=== PATIENT | male | born 1985 | race Caucasian/White ===

== ENCOUNTER 2016-08-12 17:06 | Emergency (ER) | payer SELFPAY ==
[2016-08-12 17:17] VITALS: BP 177/75
--- NOTE | 2016-08-12 18:13 | ER Document Report ---
ED Oral Problem - General Chief Complaint: Mouth Problem Stated Complaint: MOUTH PAIN Time Seen by Provider: 08/12/16 17:55 Mode of Arrival: Ambulatory Information source: Patient Notes: Patient is a 31-year-old male who presents to the ER today for 3 days of sore under his tongue that is painful and white on top of his tongue that he noticed yesterday that will not scrape off. He denies any fever chills but states that he has not felt very well. He denies any recent antibiotics or use of nasal steroid sprays. He is a diabetic. Past Medical History - General Information source: Patient - Social History Smoking Status: Unknown if Ever Smoked Family History: Reviewed & Not Pertinent Renal/ Medical History: Denies: Hx Peritoneal Dialysis Review of Systems - Review of Systems Constitutional: No symptoms reported EENT: See HPI Cardiovascular: No symptoms reported Respiratory: No symptoms reported Gastrointestinal: No symptoms reported Genitourinary: No symptoms reported Male Genitourinary: No symptoms reported Musculoskeletal: No symptoms reported Skin: No symptoms reported Hematologic/Lymphatic: No symptoms reported Neurological/Psychological: No symptoms reported Physical Exam - Vital signs Vitals: Temp Pulse Resp BP Pulse Ox 98.1 F 87 20 177/75 H 96 08/12/16 17:15 08/12/16 17:15 08/12/16 17:15 08/12/16 17:15 08/12/16 17:15 - Notes Notes: PHYSICAL EXAMINATION: GENERAL:morbidly obese, in no acute distress. HEAD: Atraumatic, normocephalic. EYES: Pupils equal round and reactive to light, extraocular movements intact, sclera anicteric, conjunctiva are normal. ENT: ear canals without erythema or foreign body, TMs pearly rivera with good bony landmarks, nares patent, white patches on tongue, unable to scrape off, small ulcer to left sublingual space, not bleeding NECK: Normal range of motion, supple without lymphadenopathy LUNGS: CTAB and equal. No wheezes rales or rhonchi. HEART: Regular rate and rhythm without murmurs EXTREMITIES: Normal range of motion, no pitting edema. No cyanosis. NEUROLOGICAL: Cranial nerves grossly intact. Normal sensory/motor exams. PSYCH: Normal mood, normal affect. SKIN: Warm, Dry, normal turgor, no rashes or lesions noted Course - Re-evaluation Re-evalutation: 08/12/16 19:00 08/12/16 19:02 pt given rx for nystatin for thrush. likely due to his diabetes. - Vital Signs Vital signs: Temp Pulse Resp BP Pulse Ox 98.1 F 87 20 177/75 H 96 08/12/16 17:15 08/12/16 17:15 08/12/16 17:15 08/12/16 17:15 08/12/16 17:15 Discharge - Discharge Clinical Impression: Thrush, oral Condition: Stable Disposition: HOME, SELF-CARE Instructions: Oral Thrush ([facility]) Additional Instructions: Return immediately for any new or worsening symptoms. Follow up with primary care provider, call tomorrow to make followup appointment. Prescriptions: Nystatin [Mycostatin [id number] Unit/1 ml Susp 60 ml Btl] 5 ml PO QID #60 ml
[2016-08-12] MEDS ORDERED: NYSTATIN/DEXAMETH/DIPHEN SUSP 120 ML PO ONE (18:18)
== END 2016-08-12 18:49 | disposition home or self-care (01) ==
LOC: ER 17:06
DX: B37.0 Candidal stomatitis (principal); E11.9 Type 2 diabetes mellitus without complications; E66.01 Morbid (severe) obesity due to excess calories; Z68.43 Body mass index [BMI] 50.0-59.9, adult
CPT/HCPCS: 99282; J3490

== ENCOUNTER 2016-09-17 20:02 | Emergency (ER) | payer SELFPAY ==
--- NOTE | 2016-09-17 21:14 | RADIOLOGY REPORT (SQ) ---
EXAM DESCRIPTION: KNEE RIGHT 4 VIEWS COMPLETED DATE/TIME: 09/17/2016 8:50 pm REASON FOR STUDY: Pain, limited movement COMPARISON: None. NUMBER OF VIEWS: Four views. TECHNIQUE: AP, lateral, and both oblique radiographic images acquired of the right knee. LIMITATIONS: None. FINDINGS: MINERALIZATION: Normal. BONES: No acute fracture or dislocation. No worrisome bone lesions. Minimal 3 compartment osteophytes . JOINT: No effusion. No chondrocalcinosis. OTHER: No other significant finding. IMPRESSION: Minimal 3 compartment osteophytes. TECHNICAL DOCUMENTATION: JOB ID: [id number] [employer]- All Rights Reserved
--- NOTE | 2016-09-17 22:03 | ER Document Report ---
ED General - General Chief Complaint: Knee Pain Stated Complaint: KNEE PAIN Time Seen by Provider: 09/17/16 21:55 Mode of Arrival: Ambulatory Information source: Patient Notes: 31 yr old male presents with complaitns of right knee pain of a few month duration. pt denies any trauma, is able to ambulate, notes it hurts when he turns his leg. denies any calf pain or swell, denies any dvt risk factors TRAVEL OUTSIDE OF THE [place] IN LAST 30 DAYS: No - HPI Onset: Other Onset/Duration: Persistent Quality of pain: Achy Severity: Mild Pain Level: 1 Associated symptoms: Body/muscle aches Exacerbated by: Movement Relieved by: Denies Similar symptoms previously: No Recently seen / treated by doctor: No - Related Data Allergies/Adverse Reactions: No Known Allergies Allergy (Unverified 09/17/16 20:22) Past Medical History - Social History Smoking Status: Never Smoker Cigarette use (# per day): No Chew tobacco use (# tins/day): No Smoking Education Provided: No Family History: Reviewed & Not Pertinent Renal/ Medical History: Denies: Hx Peritoneal Dialysis Review of Systems - Review of Systems Notes: REVIEW OF SYSTEMS: CONSTITUTIONAL : Denies fever, chills, or sweats. Denies recent illness. EENT: Denies eye, ear, throat, or mouth pain or symptoms. Denies nasal or sinus congestion or discharge. Denies throat, tongue, or mouth swelling or difficulty swallowing. CARDIOVASCULAR: Denies chest pain. Denies palpitations or racing or irregular heart beat. Denies ankle edema. RESPIRATORY: Denies cough, cold, or chest congestion. Denies shortness of breath, difficulty breathing, or wheezing. GASTROINTESTINAL: Denies abdominal pain or distention. Denies nausea, vomiting , or diarrhea. Denies blood in vomitus, stools, or per rectum. Denies black, tarry stools. Denies constipation. GENITOURINARY: Denies difficulty urinating, painful urination, burning, frequency, blood in urine, or discharge. MUSCULOSKELETAL: Admits to right knee pain SKIN: Denies rash, lesions or sores. HEMATOLOGIC : Denies easy bruising or bleeding. LYMPHATIC: Denies swollen, enlarged glands. NEUROLOGICAL: Denies confusion or altered mental status. Denies passing out or loss of consciousness. Denies dizziness or lightheadedness. Denies headache. Denies weakness or paralysis or loss of use of either side. Denies problems with gait or speech. Denies sensory loss, numbness, or tingling. Denies seizures. PSYCHIATRIC: Denies anxiety or stress. Denies depression, suicidal ideation, or homicidal ideation. ALL OTHER SYSTEMS REVIEWED AND NEGATIVE. Dictation was performed using [employer] voice recognition software PHYSICAL EXAMINATION: GENERAL: Well-appearing, well-nourished and in no acute distress. HEAD: Atraumatic, normocephalic. EYES: Pupils equal round and reactive to light, extraocular movements intact, sclera anicteric, conjunctiva are normal. ENT: Nares patent, oropharynx clear without exudates. Moist mucous membranes. NECK: Normal range of motion, supple without lymphadenopathy LUNGS: Breath sounds clear to auscultation bilaterally and equal. No wheezes rales or rhonchi. HEART: Regular rate and rhythm without murmurs ABDOMEN: Soft, nontender, nondistended abdomen. No guarding, no rebound. No masses appreciated. Musculoskeletal: Normal range of motion, no pitting or edema. No cyanosis. Patient notes tenderness with range of motion no laxity noted patient is able to ambulate NEUROLOGICAL: Cranial nerves grossly intact. Normal speech, normal gait. Normal sensory, motor exams PSYCH: Normal mood, normal affect. SKIN: Warm, Dry, normal turgor, no rashes or lesions noted. Physical Exam - Vital signs Vitals: Temp Pulse Resp BP Pulse Ox 98.8 F 93 20 185/82 H 99 09/17/16 20:21 09/17/16 20:21 09/17/16 20:21 09/17/16 20:21 09/17/16 20:21 Course - Re-evaluation Re-evalutation: 09/17/16 22:08 Patient otherwise appears well is in no distress, we will try anti- inflammatories [id number] plus steroids as the patient has had no issues with this in the past. He denies a history of diabetes. Patient will be given orthopedic follow-up and Tanner wrap is otherwise well-appearing After performing a Medical Screening Examination, I estimate there is LOW risk for INTRACRANIAL HEMORRHAGE, UNSTABLE SPINE FRACTURE, CENTRAL CORD SYNDROME, CAUDA EQUINA, THORACIC AORTIC DISSECTION, PNEUMOTHORAX, PERFORATED BOWEL, RUPTURED ABDOMINAL AORTIC ANEURYSM, ACUTE TENDON RUPTURE, COMPARTMENT SYNDROME, or OPEN FRACTURE, thus I consider the discharge disposition reasonable. Also, there is no evidence or peritonitis, sepsis, or toxicity. I have reevaluated this patient multiple times and no significant life threatening changes are noted. The patient and I have discussed the diagnosis and risks, and we agree with discharging home to follow-up with their primary doctor with the understanding that symptoms and presentations can change. We also discussed returning to the Emergency Department immediately if new or worsening symptoms occur. We have discussed the symptoms which are most concerning (e.g., bloody stool, fever, changing or worsening pain, vomiting) that necessitate immediate return. - Vital Signs Vital signs: Temp Pulse Resp BP Pulse Ox 98.8 F 93 20 185/82 H 99 09/17/16 20:21 09/17/16 20:21 09/17/16 20:21 09/17/16 20:21 09/17/16 20:21 Procedures - Immobilization Right Knee Time completed: 22:00 Pre-Proc Neuro Vasc Exam: Normal Immobilizer type: Tanner wrap Performed by: PCT Post-Proc Neuro Vasc Exam: Normal Alignment checked and good: Yes Discharge - Discharge Clinical Impression: Right knee pain Qualifiers: Chronicity: chronic Qualified Code(s): M25.561 - Pain in right knee Condition: Stable Disposition: HOME, SELF-CARE Instructions: Suspected Internal Knee Injury ([facility]) Prescriptions: Hydrocodone/Acetaminophen [York 5-325 mg Tablet] 1 tab PO Q6 #10 tablet Prednisone [Deltasone 20 mg Tablet] 3 tab PO DAILY 5 Days Referrals: DOMINICK KING DO [ACTIVE STAFF] - Follow up tomorrow
[2016-09-17] MEDS ORDERED: HYDROCODONE/ACETAMINOPHEN 5-325 MG TABLET PO ONE (22:22)
[2016-09-17 22:58] VITALS: BP 160/103
== END 2016-09-17 22:54 | disposition home or self-care (01) ==
LOC: ER 20:02
DX: M25.561 Pain in right knee (principal); G89.29 Other chronic pain
CPT/HCPCS: 99283

== ENCOUNTER 2016-09-30 16:38 | Emergency (ER) | payer SELFPAY ==
[2016-09-30 16:48] VITALS: BP 182/96
[2016-09-30] MEDS ORDERED: KETOROLAC TROMETHAMINE 60 MG/2 ML SDV IM ONE (17:19)
--- NOTE | 2016-09-30 17:24 | ER Document Report ---
ED Extremity Problem, Lower - General Chief Complaint: R knee pain Stated Complaint: RIGHT KNEE PAIN Time Seen by Provider: 09/30/16 16:57 Mode of Arrival: Ambulatory Information source: Patient Notes: 1-year-old male presents to ED for right knee pain 2 months. He states it gets worse. He states he has not been to the doctor even though he was [facility]. He states he is waiting till he can get insurance to go to the doctor. He states he is emptying aranza potty. He states he was in the emergency room 2 weeks ago and they gave him a sheet wrap and hydrocodone but he has taken all of the hydrocodone and worn out the Tanner wrap. He states he needs a knee brace I explained to him that we do not have knee braces in the emergency room. TRAVEL OUTSIDE OF THE [place] IN LAST 30 DAYS: No - HPI Patient complains to provider of: Pain Location: Knee - Knee Occurred: Other - 2 months Quality of pain: Achy Severity: Moderate Pain Level: 4 Context: Other - No injuries states it is worse if he kneels on it Recent injury: No Associated symptoms: Painful ambulation Exacerbated by: Movement, Walking, Other - Kneeling down Relieved by: Ice, Rest - Related Data Allergies/Adverse Reactions: No Known Allergies Allergy (Unverified 09/17/16 20:22) Past Medical History - General Information source: Patient - Social History Smoking Status: Current Every Day Smoker Cigarette use (# per day): Yes - 3 cig Chew tobacco use (# tins/day): No Smoking Education Provided: Yes - less than 1 min Frequency of alcohol use: None Drug Abuse: None 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[employer] Lives with: Family Family History: Arthritis, CAD, COPD, CVA, DM, Hyperlipidemia, Hypertension, Malignancy, Thyroid Disfunction Patient has suicidal ideation: No Patient has homicidal ideation: No - Past Medical History Cardiac Medical History: Reports: Hx Hypertension Pulmonary Medical History: Reports: Hx Asthma EENT Medical History: Reports: None Neurological Medical History: Reports: None Endocrine Medical History: Reports: None Renal/ Medical History: Reports: Hx Kidney Stones Malignancy Medical History: Reports None GI Medical History: Reports: None Musculoskeltal Medical History: Reports Hx Arthritis, Reports Hx Musculoskeletal Deformity, Reports Hx Musculoskeletal Trauma Skin Medical History: Reports None Psychiatric Medical History: Reports: None Traumatic Medical History: Reports: None Infectious Medical History: Reports: None Past Surgical History: Reports: Hx Orthopedic Surgery - hand surgery - Immunizations Immunizations up to date: Yes Hx Diphtheria, Pertussis, Tetanus Vaccination: Yes - 2014 Review of Systems - Review of Systems Constitutional: No symptoms reported EENT: No symptoms reported Cardiovascular: No symptoms reported Respiratory: No symptoms reported Gastrointestinal: No symptoms reported Genitourinary: No symptoms reported Male Genitourinary: No symptoms reported Musculoskeletal: Joint pain - right knee pain Skin: No symptoms reported Hematologic/Lymphatic: No symptoms reported Neurological/Psychological: No symptoms reported -: Yes All other systems reviewed and negative Physical Exam - Vital signs Vitals: Temp Pulse Resp BP Pulse Ox 98.4 F 92 16 182/96 H 97 09/30/16 16:47 09/30/16 16:47 09/30/16 16:47 09/30/16 16:47 09/30/16 16:47 Interpretation: Normal - General General appearance: Appears well, Alert - HEENT Head: Normocephalic, Atraumatic Eyes: Normal Pupils: PERRL - Respiratory Respiratory status: No respiratory distress Chest status: Nontender Breath sounds: Normal Chest palpation: Normal - Cardiovascular Rhythm: Regular Heart sounds: Normal auscultation Murmur: No - Abdominal Inspection: Normal Distension: No distension Bowel sounds: Normal Tenderness: Nontender Organomegaly: No organomegaly - Back Back: Normal, Nontender - Extremities General upper extremity: Normal inspection, Nontender, Normal color, Normal ROM , Normal temperature General lower extremity: Normal inspection, Normal color, Normal ROM, Normal temperature, Normal weight bearing Knee: Tender - Tender at the bottom of the patella states that is worse when he kneels, Pain with ROM. No: Abrasion, Deformity, Dislocation, Drawer's test instability, Ecchymosis, Instability, Joint effusion, Laxity with valgus stress , Laxity with varus stress, Patellar tendon intact, Popliteal fossa tender, Tender joint line, Unable to bear weight - Neurological Neuro grossly intact: Yes Cognition: Normal Orientation: AAOx4 [place]vine Coma Scale Eye Opening: Spontaneous [place] Coma Scale Verbal: Oriented Maueren Coma Scale Motor: Obeys Commands G[place]vine Coma Scale Total: 15 Speech: Normal Motor strength normal: LUE, RUE, LLE, RLE Sensory: Normal - Psychological Associated symptoms: Normal affect, Normal mood - Skin Skin Temperature: Warm Skin Moisture: Dry Skin Color: Normal Course - Re-evaluation Re-evalutation: 09/30/16 17:38 Patient is very obese at around 400 pounds. He states his knee has been hurting for over 2 months. He states he does not remember any injury. Patient was seen in the emergency room 2 weeks ago and instructed to follow-up with orthopedics and with [facility] which he has not yet done. He also has elevated blood pressure and has been told multiple times he states but has not started on any kind of medication and he has not followed up with the primary doctor. Patient states he should be getting insurance soon and then he will be following up with . Patient will be given a Toradol injection instruction on use of ice and elevation. He was also given instructions on losing some weight to help with the knee pain. - Vital Signs Vital signs: Temp Pulse Resp BP Pulse Ox 98.4 F 92 16 182/96 H 97 09/30/16 16:47 09/30/16 16:47 09/30/16 16:47 09/30/16 16:47 09/30/16 16:47 Discharge - Discharge Clinical Impression: Chronic pain of right knee Condition: Stable Disposition: HOME, SELF-CARE Additional Instructions: Leg Pain, Nonspecific We did not find an obvious cause for your leg pain. There's no sign of blood clot, infection, or other serious disease. Possible causes of vague leg pain include muscle or joint inflammation, disc disease in the lower back, pressure on the nerves in the back, or reduced blood flow through the arteries of the leg. Rest the leg. Pain can be eased with an antiinflammatory pain medicine such as ibuprofen. If the pain involves a small area, a heating pad might help. Call the doctor or return if the leg becomes swollen, weak, discolored, or increasingly painful, or if you develop any other significant change in your health. ICE & ELEVATION: Apply ice packs frequently against the painful area. Many different schedules are recommended, such as "20 minutes on, 20 minutes off" or "one hour ice, two hours rest." If you need to work, you may need to go longer between ice treatments. You should plan to have the area ice packed AT LEAST one- fourth of the time. The ice should be applied over the wrap, tape, or splint, or over a layer of cloth -- not directly against the skin. Some ice bags have a built-in cloth and can be put directly on the skin. Your injured part should be elevated as much as possible over the next 48 hours. Try to keep the injury above the level of the heart. Avoid use of the injured area. Elevation and rest will decrease the swelling. USE OF [id number] IBUPROFEN: Ibuprofen (Advil, Nuprin, Medipren, Motrin IB) is a medication for fever and pain control. In addition, it has anti- inflammatory effects which may be beneficial, especially in the treatment of injuries. It's best to take ibuprofen with food. Persons with ulcer disease or allergy to aspirin should notify their physician of this before taking ibuprofen. Ibuprofen can be given every four to six hours, for a total of four doses daily. Age Pain or fever dose Antiinflammatory dose 6-8 yr 200 mg (1 tab) 200 mg (1 tab) 9-11 yr 200 mg (1 tab) 200-400 mg (1-2 tab) 11-14 yr 200-400 mg (1-2 tab) 400 mg (2 tab) 15-adult 400 mg (2 tab) 600 mg (3 tab) Acetaminophen Acetaminophen may be taken for pain relief or fever control. It's much safer than aspirin, offering a wider range of "safe" dosages. It is safe during . Some brand names are Tylenol, Panadol, Datril, Anacin 3, Tempra, and Liquiprin. Acetaminophen can be repeated every four hours. The following are maximum recommended dosages: WEIGHT Dose Drops Elixir Chewable( 80mg) (LBS.) drprs=droppers tsp=teaspoon 6 40 mg .4 ml (1/2) 6-11 80 mg .8 ml (full) 1/2 tsp 1 tab 12-16 120 mg 1 1/2 drprs 3/4 tsp 1 1/2 tabs 17-23 160 mg 2 drprs 1 tsp 2 tabs 24-30 240 mg 3 drprs 1 1/2 tsp 3 tabs 30-35 320 mg 2 tsp 4 tabs 36-41 360 mg 2 1/4 tsp 4 1 /2 tabs 42-47 400 mg 2 1/2 tsp 5 tabs 48-53 480 mg 3 tsp 6 tabs 54-59 520 mg 3 1/4 tsp 6 1 /2 tabs 60-64 560 mg 3 1/2 tsp 7 tabs 65-70 600 mg 3 3/4 tsp 7 1 /2 tabs 71-76 640 mg 4 tsp 8 tabs 77-82 720 mg 4 1/2 tsp 9 tabs 83-88 800 mg 5 tsp 10 tabs >89 pounds or adults 650 mg to 900 mg Acetaminophen can be repeated every four hours. Maximum daily dose not to exceed 4000 mg. These maximum recommended dosages are slightly higher than the dosages written on the product container, but these dosages are very safe and well below the toxic dosage for acetaminophen. The extra weight you are carrying is also contributing to your knee pain. You need to try to lose some of the excess weight and exercise to help with your knee pain. Try Aspercreme [id number] to the area of pain this is a lidocaine. Followed directions on the tube for application. This will also help your back pain FOLLOW-UP CARE: If you have been referred to a physician for follow-up care, call the physician s office for an appointment as you were instructed or within the next two days. If you experience worsening or a significant change in your symptoms, notify the physician immediately or return to the Emergency Department at any time for re-evaluation. Forms: Elevated Blood Pressure, Smoking Cessation Education, Return to Work Referrals: DOMINICK KING DO [ACTIVE STAFF] - Follow up as needed [facility] [Provider Group] - Follow up as needed [facility] [Provider Group] - Follow up as needed
== END 2016-09-30 18:05 | disposition home or self-care (01) ==
LOC: ER 16:38
DX: G89.29 Other chronic pain (principal); M25.561 Pain in right knee; E66.9 Obesity, unspecified; F17.210 Nicotine dependence, cigarettes, uncomplicated; I10 Essential (primary) hypertension; J45.909 Unspecified asthma, uncomplicated
CPT/HCPCS: 99283; 96372; J1885

== ENCOUNTER 2016-10-19 07:34 | Emergency (ER) | payer SELFPAY ==
--- NOTE | 2016-10-19 08:00 | ER Document Report ---
HPI - HPI Patient complains to provider of: cough, congestion Onset: Other - 3 days Quality of pain: Achy Pain Level: 2 Context: 31-year-old obese male complaining of congestion and cough for 3 days. His temperature was 101.5 this morning. He smokes. He is used inhaled bronchodilators in the past. No chest pain or shortness of breath. Associated Symptoms: None Exacerbated by: Denies Relieved by: Denies - ROS ROS below otherwise negative: Yes Systems Reviewed and Negative: Yes All other systems reviewed and negative - DERM Skin Color: Normal Past Medical History - General Information source: Patient - Social History Smoking Status: Current Every Day Smoker Frequency of alcohol use: None Drug Abuse: None Occupation: [employer] Lives with: Family Family History: Reviewed & Not Pertinent Patient has suicidal ideation: No Patient has homicidal ideation: No - Past Medical History Cardiac Medical History: Reports: Hx Hypertension Pulmonary Medical History: Reports: Hx Asthma Renal/ Medical History: Reports: Hx Kidney Stones. Denies: Hx Peritoneal Dialysis Musculoskeltal Medical History: Reports Hx Arthritis, Reports Hx Musculoskeletal Deformity, Reports Hx Musculoskeletal Trauma Past Surgical History: Reports: Hx Orthopedic Surgery - hand surgery - Immunizations Immunizations up to date: Yes Hx Diphtheria, Pertussis, Tetanus Vaccination: Yes - 2014 [facility] Provider Document - CONSTITUTIONAL Agree With Documented VS: Yes Exam Limitations: No Limitations General Appearance: No Apparent Distress - INFECTION CONTROL TRAVEL OUTSIDE OF THE [place] IN LAST 30 DAYS: No - HEENT HEENT: Normocephalic, Pharyngeal Erythema. negative: Conjuctival Injection, Tympanic Membrane Red - NECK Neck: Supple. negative: Lymphadenopathy-Left, Lymphadenopathy-Right - RESPIRATORY Respiratory: No Respiratory Distress, Wheezing - Course bilateral on expiration O2 Sat by Pulse Oximetry: 94 - CARDIOVASCULAR Cardiovascular: Regular Rate, Regular Rhythm - GI/ABDOMEN Gastrointestinal: Abdomen Soft, Abdomen Non-Tender - MUSCULOSKELETAL/EXTREMETIES Musculoskeletal/Extremeties: JB JOSHI - NEURO Level of Consciousness: Awake, Alert - DERM Integumentary: Warm, Dry Course - Re-evaluation Re-evalutation: 10/19/16 09:53 chest xray vascular congestion, no pneumonia per rad. mucous looser, coughing, still some coarse exp wheeze 10/19/16 09:56 - Vital Signs Vital signs: Temp Pulse Resp BP Pulse Ox 98.8 F 111 H 22 H 187/90 H 94 10/19/16 07:44 10/19/16 07:44 10/19/16 07:44 10/19/16 07:44 10/19/16 07:44 Discharge - Discharge Clinical Impression: Bronchitis, reported fever, wheezing Condition: Good Disposition: HOME, SELF-CARE Instructions: Azithromycin ([facility]), Bronchitis With Bronchospasm (Wheezing) ([facility]) , Inhaled Bronchodilators ([facility]), Steroid Medication Additional Instructions: use the inhaler to help cough the mucous out see your doctor next week for follow up to er if worse plenty of fluids Please complete the patient satisfaction survey if you get one, and return it.. If you do not receive a survey, then you can go to the [facility] website, [email or web address] and place your comments about your very good care. Thank you very much. It was a pleasure being your medical provider today. Prescriptions: Albuterol Sulfate [Proair HFA Inhalation Aerosol 8.5 gm MDI] 2 puff IH Q3HP PRN #1 [email or web address] PRN Reason: Azithromycin [Zithromax] 250 mg PO DAILY #6 tablet Prednisone [Deltasone 10 mg Tablet] 10 mg PO ASDIR PRN #21 tablet PRN Reason: Forms: Return to Work
[2016-10-19] MEDS ORDERED: ALBUTEROL SULFATE 0.083% NEB 2.5 MG/3 ML AMPUL NEB ONE (08:42)
[2016-10-19] MEDS ORDERED: IPRATROPIUM/ALBUTEROL 0.5-2.5 MG/3 ML AMPUL NEB ONE (08:42)
[2016-10-19] MEDS ORDERED: PREDNISONE 20 MG TABLET PO ONE (08:42)
--- NOTE | 2016-10-19 09:26 | RADIOLOGY REPORT (SQ) ---
EXAM DESCRIPTION: CHEST PA/LAT COMPLETED DATE/TIME: 10/19/2016 9:14 am REASON FOR STUDY: cough COMPARISON: None. EXAM PARAMETERS: NUMBER OF VIEWS: two views TECHNIQUE: Digital Frontal and Lateral radiographic views of the chest acquired. RADIATION DOSE: NA LIMITATIONS: Poor inspiration. FINDINGS: LUNGS AND PLEURA: No opacities, masses or pneumothorax. No pleural effusion. MEDIASTINUM AND HILAR STRUCTURES: No masses or contour abnormalities. HEART AND VASCULAR STRUCTURES: Cardiac silhouette is of normal size. Mild vascular congestion. BONES: No acute findings. Mild chronic appearing wedging of lower thoracic vertebrae. Mild thoracic spondylosis. HARDWARE: None in the chest. OTHER: Partial eventration of the anterior right hemidiaphragm IMPRESSION: Mild vascular congestion. TECHNICAL DOCUMENTATION: JOB ID: [id number] [employer]- All Rights Reserved
[2016-10-19 10:05] VITALS: BP 180/85
== END 2016-10-19 10:06 | disposition home or self-care (01) ==
LOC: ER 07:34
DX: J45.909 Unspecified asthma, uncomplicated (principal); R05 Cough; F17.200 Nicotine dependence, unspecified, uncomplicated; I10 Essential (primary) hypertension; R50.9 Fever, unspecified
CPT/HCPCS: 94640 ×2; 99283; 71020; J7512; J7620

== ENCOUNTER 2017-05-28 08:42 | Emergency (ER) | payer OTHER ==
[2017-05-28 08:49] VITALS: BP 164/89
[2017-05-28] MEDS ORDERED: TETRACAINE HCL 0.5% OPH SOLN 2 ML OS ONE (09:19)
[2017-05-28] MEDS ORDERED: NYSTATIN/TRIAMCIN OINTMENT 15 GM TP ONE (09:19)
--- NOTE | 2017-05-28 09:20 | ER Document Report ---
ED General - General Chief Complaint: Skin Problem Stated Complaint: RASH CONCERN Time Seen by Provider: 05/28/17 09:03 Mode of Arrival: Ambulatory Information source: Patient Notes: 32-year-old male presents to the ED for complaint of large rash to his abdominal folds. He states that it is been there for a good while and it is very itchy. He states he has been putting some Goldbond powder to the area with not a lot of relief. He states it is been there for a good while but he does not know how long. He has also been complaining of left eye drainage for "a good while to "he states he does not know what he did to his eye but it is been draining consistently. 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: No - HPI Onset: Other - "A good while " Onset/Duration: Persistent Quality of pain: No pain Severity: None Pain Level: Denies Associated symptoms: Other - Rash to abdomen drainage from left eye Exacerbated by: Denies Relieved by: Denies Similar symptoms previously: Yes Recently seen / treated by doctor: No - Related Data Allergies/Adverse Reactions: No Known Allergies Allergy (Verified 05/28/17 08:46) Past Medical History - General Information source: Patient - Social History Smoking Status: Current Every Day Smoker Cigarette use (# per day): Yes - Half pack a day Chew tobacco use (# tins/day): No Smoking Education Provided: Yes - 4 minutes Frequency of alcohol use: Occasional Drug Abuse: None, Other Occupation: [employer] Lives with: Family Family History: Arthritis, CAD, CVA, DM, Hyperlipidemia, Hypertension, Malignancy. denies: COPD, Thyroid Disfunction Patient has suicidal ideation: No Patient has homicidal ideation: No - Past Medical History Cardiac Medical History: Reports: Hx Hypertension Pulmonary Medical History: Reports: Hx Asthma EENT Medical History: Reports: None Neurological Medical History: Reports: None Endocrine Medical History: Reports: None Renal/ Medical History: Reports: Hx Kidney Stones Malignancy Medical History: Reports None GI Medical History: Reports: None Musculoskeltal Medical History: Reports Hx Arthritis, Reports Hx Musculoskeletal Deformity - Back problems, Reports Hx Musculoskeletal Trauma - Muscle strains and sprains, shot water into his hand Skin Medical History: Reports None Psychiatric Medical History: Reports: None Traumatic Medical History: Reports: None Infectious Medical History: Reports: None Past Surgical History: Reports: Hx Orthopedic Surgery - hand surgery due to water shooting through his hand - Immunizations Immunizations up to date: Yes Hx Diphtheria, Pertussis, Tetanus Vaccination: Yes - 2014 Review of Systems - Review of Systems Constitutional: No symptoms reported EENT: No symptoms reported, Eye discharge, Blurred vision - Times Cardiovascular: No symptoms reported Respiratory: No symptoms reported Gastrointestinal: No symptoms reported Genitourinary: No symptoms reported Male Genitourinary: No symptoms reported Musculoskeletal: No symptoms reported Skin: Rash - Fungal rash to abdomen skin folds Hematologic/Lymphatic: No symptoms reported Neurological/Psychological: No symptoms reported -: Yes All other systems reviewed and negative Physical Exam - Vital signs Vitals: Temp Pulse Resp BP Pulse Ox 98.7 F 92 16 164/89 H 93 05/28/17 08:47 05/28/17 08:47 05/28/17 08:47 05/28/17 08:47 05/28/17 08:47 Interpretation: Normal - General General appearance: Appears well, Alert - HEENT Head: Normocephalic, Atraumatic Eyes: Normal Conjunctiva: Purulent discharge - Yellow drainage from left eye Cornea: Normal. No: Embedded foreign body, Flourescein stain uptake, Superficial foreign body Eyelashes: Matted - Yellow drainage in the eye matted with yellow drainage left eye Pupils: PERRL Visual acuity- Right eye: 20/70 Visual acuity- Left eye: 20/70 Visual acuity- Both eyes: 20/40 Corrective lenses worn: No - supposed to wear glasses Ears: Normal External canal: Normal Tympanic membrane: Normal Sinus: Normal Nasal: Normal Mouth/Lips: Normal Mucous membranes: Normal Pharynx: Normal Neck: Normal - Respiratory Respiratory status: No respiratory distress Chest status: Nontender Breath sounds: Normal Chest palpation: Normal - Cardiovascular Rhythm: Regular Heart sounds: Normal auscultation Murmur: No - Abdominal Inspection: Normal Distension: No distension Bowel sounds: Normal Tenderness: Nontender, Other - Large fungal type rash to the lower abdomen skin folds Organomegaly: No organomegaly - Back Back: Normal, Nontender - Extremities General upper extremity: Normal inspection, Nontender, Normal color, Normal ROM , Normal temperature General lower extremity: Normal inspection, Nontender, Normal color, Normal ROM , Normal temperature, Normal weight bearing. No: Frank's sign - Neurological Neuro grossly intact: Yes Cognition: Normal Orientation: AAOx4 Maureen Coma Scale Eye Opening: Spontaneous [place] Coma Scale Verbal: Oriented Maureen Coma Scale Motor: Obeys Commands Maureen Coma Scale Total: 15 Speech: Normal Motor strength normal: LUE, RUE, LLE, RLE Sensory: Normal - Psychological Associated symptoms: Normal affect, Normal mood - Skin Skin Temperature: Warm Skin Moisture: Dry Skin Color: Normal Skin irregularity: Rash Location of irregularity: Abdomen - Skin folds Character of irregularity: Erythematous, Urticarial Irregularity with: Thickening, Inflammation, Rough texture-sand paper Course - Re-evaluation Re-evalutation: 05/28/17 09:[address] Rodriguez for Yellow drainage to left eye for "awhile". Mycolog ordered for the fungal type rash to his abdomen. Eye exam did not show any corneal abrasions any foreign bodies but it does have a lot of drainage in the upper aspect of his eye. An appointment was scheduled for today at [address] James considering his eyes. He has been informed that the full anders is 180 if he pays today or it is 200 if he does not painful today. - Vital Signs Vital signs: Temp Pulse Resp BP Pulse Ox 98.7 F 92 16 164/89 H 93 05/28/17 08:47 05/28/17 08:47 05/28/17 08:47 05/28/17 08:47 05/28/17 08:47 Discharge - Discharge Clinical Impression: Eye drainage left eye, Skin rash Condition: Stable Disposition: HOME, SELF-CARE Additional Instructions: He was seen today for drainage from the left eye. You state you do not know how long this has been draining. You states you have had your I take shot for a while. I have scheduled you an appointment with Dr. Rodriguez at 230 today your to be at his office at 230 your in your appointments are at 245 and 315 but she needs to both there at 230. The phone number is [phone] calling any insurance information beforehand. Very important that she keep this appointment due to this drainage that is been coming from you I forgot while it can affect your vision and the health of your eye. Cost without insurance is $180 a painful today $200 if not painful today. You have a large rash to her lower abdomen. This appears to be a yeast rash. Please cleaned well with Dial soap rinse well with warm water pat dry then apply Mycolog cream as prescribed. Please keep the skin folds from touching each other with something cotton not nylon. Please keep clean and dry as much as possible. FOLLOW-UP CARE: If you have been referred to a physician for follow-up care, call the physician s office for an appointment as you were instructed or within the next two days. If you experience worsening or a significant change in your symptoms, notify the physician immediately or return to the Emergency Department at any time for re-evaluation. Prescriptions: Nystatin/Triamcin [Mycolog-II Ointment 15 gm] 15 applic TP BID #1 tube Forms: Elevated Blood Pressure, Smoking Cessation Education, Return to Work Referrals: SANJUANA RODRIGUEZ MD [ACTIVE STAFF] - Follow up as needed
== END 2017-05-28 10:30 | disposition home or self-care (01) ==
LOC: ER 08:42
DX: H57.9 Unspecified disorder of eye and adnexa (principal); R21 Rash and other nonspecific skin eruption; F17.210 Nicotine dependence, cigarettes, uncomplicated; I10 Essential (primary) hypertension; J45.909 Unspecified asthma, uncomplicated
CPT/HCPCS: 99406; 99283; J3490

== ENCOUNTER 2018-01-19 08:08 | Emergency (ER) | payer SELFPAY ==
--- NOTE | 2018-01-19 09:16 | ER Document Report ---
HPI - HPI Time Seen by Provider: 01/19/18 09:04 Pain Level: 2 Notes: Patient is a 32-year-old male with no significant past medical history who presents to the ED complaining of a rash to his bilateral lower extremities that has been moving proximally and to his trunk over the last 9 days. Patient states that he is working outside constantly and does not recall any tick bite. He has not been ill. Denies drug allergies. Patient states that the rash is pruritic and does not matter if its day or night. He has not noticed any purulent discharge or an abscess. He is eating and drinking without any difficulties. He is urinating normally and having normal bowel movements. He is not aware of any new exposure to chemicals, detergents, soaps, foods, or any medicines. Denies any headache, fever, URI, sore throat, chest pain, palpitations, syncope, cough, shortness of breath, wheeze, dyspnea, abdominal pain, nausea/vomiting/diarrhea, urinary retention, dysuria, hematuria, joint pain. - ROS Systems Reviewed and Negative: Yes All other systems reviewed and negative Past Medical History - Social History Smoking Status: Unknown if Ever Smoked Family History: Arthritis, CAD, CVA, DM, Hyperlipidemia, Hypertension, Malignancy. denies: COPD, Thyroid Disfunction - Past Medical History Cardiac Medical History: Reports: Hx Hypertension Pulmonary Medical History: Reports: Hx Asthma Renal/ Medical History: Reports: Hx Kidney Stones. Denies: Hx Peritoneal Dialysis Musculoskeletal Medical History: Reports Hx Arthritis, Reports Hx Musculoskeletal Deformity - Back problems, Reports Hx Musculoskeletal Trauma - Muscle strains and sprains, shot water into his hand Past Surgical History: Reports: Hx Orthopedic Surgery - hand surgery due to water shooting through his hand - Immunizations Immunizations up to date: Yes Hx Diphtheria, Pertussis, Tetanus Vaccination: Yes - 2014 [facility] Provider Document - CONSTITUTIONAL Agree With Documented VS: Yes Notes: PHYSICAL EXAMINATION: GENERAL: Well-appearing, well-nourished and in no acute distress. HEAD: Atraumatic, normocephalic. EYES: Pupils equal round and reactive to light, extraocular movements intact, sclera anicteric, conjunctiva are normal. ENT: Nares patent and without discharge. oropharynx clear without exudates. No tonsilar hypertrophy or erythema. Moist mucous membranes. NECK: Normal range of motion, supple without lymphadenopathy LUNGS: Breath sounds clear to auscultation bilaterally and equal. No wheezes rales or rhonchi. HEART: Regular rate and rhythm without murmurs, rubs, gallops. ABDOMEN: Soft, nontender, nondistended abdomen. No guarding, no rebound. No masses appreciated. Normal bowel sounds present. No CVA tenderness bilaterally. Musculoskeletal: FROM to passive/active. Strength 5+/5. Extremities: No cyanosis, clubbing, or edema b/l. Peripheral pulses 2+. Capillary refill less than 3 seconds. NEUROLOGICAL: Cranial nerves grossly intact. Normal speech, normal gait. Normal sensory, motor exams PSYCH: Normal mood, normal affect. SKIN: maculopapular rash to his LE's b/l and to his trunk, sparing the web spacing and groin/waist. There is an area of more macular erythema with minimal warmth and minimal tenderness w/o fluctuance, purulence, or streaks, possible early cellulitis w/o point of maximal tenderness. - INFECTION CONTROL TRAVEL OUTSIDE OF THE [place] IN LAST 30 DAYS: No Course - Re-evaluation Re-evalutation: 01/19/18 09:[address] Clayton who is in agreement with dispo/plan: Patient is an afebrile, well-hydrated, 32-year-old male who presents to the ED with a nonspecific skin rash which we suspect to be contact dermatitis with one area of a possible early cellulitis without evidence of abscess. Vitals are acceptable without any significant tachycardia, tachypnea, or hypoxia. PE is otherwise unremarkable. Patient is nontoxic-appearing is tolerating p.o. without difficulty. No incision and drainage is warranted at this time as there is no point of maximal tenderness, fluctuance, induration, purulence. Low suspicion for any Williamson spotted fever, Lyme disease, SJS, necrotizing fasciitis, sepsis, meningitis, severe dehydration, respiratory compromise, or other systemic emergent condition at this time. Patient is aware that condition can change from initial presentation and he needs to monitor symptoms closely and seek medical attention with any acute changes. Solu-Medrol given IM today. I will send him home with steroids and Keflex. Conservative measures otherwise for symptoms. Recheck with your PCM in 3-5 days. Return to the ED with any other worsening/concerning symptoms otherwise as reviewed. Patient is in agreement. - Vital Signs Vital signs: Temp Pulse Resp BP Pulse Ox 97.9 F 94 18 187/91 H 96 01/19/18 08:13 01/19/18 08:13 01/19/18 08:13 01/19/18 08:13 01/19/18 08:13 Discharge - Discharge Clinical Impression: Rash and nonspecific skin eruption Condition: Stable Disposition: HOME, SELF-CARE Additional Instructions: Keep the skin clean Wash with soap and water Tylenol/ibuprofen if needed Triple antibiotic ointment daily for breaks in the skin Take medication as directed Monitor for any worsening symptoms Wash your clothes and bedding thoroughly Recheck with your PCM in 3-5 days Consider consult with Dermatology for ongoing/worsening symptoms Return to the ED with any worsening symptoms and/or development of fever, headache, chest pain, palpitations, syncope, shortness of breath, trouble breathing, abdominal pain, n/v/d, abscess, purulent discharge, red streaks, worsening swelling, or other worsening symptoms that are concerning to you. Prescriptions: Cephalexin Monohydrate [Keflex 500 mg Capsule] 500 mg PO TID #21 capsule Prednisone [Deltasone 20 mg Tablet] 3 tab PO DAILY 5 Days tablet Forms: Elevated Blood Pressure Referrals: JUHI SHIRLEY DO [ACTIVE STAFF] - Follow up as needed
[2018-01-19] MEDS ORDERED: METHYLPREDNISOLONE INJ 125 MG/2 ML SDV IM ONE (09:18)
[2018-01-19 10:09] VITALS: BP 156/97
== END 2018-01-19 10:04 | disposition home or self-care (01) ==
LOC: ER 08:08
DX: R21 Rash and other nonspecific skin eruption (principal); I10 Essential (primary) hypertension; J45.909 Unspecified asthma, uncomplicated
CPT/HCPCS: 99283; 96372; J2930

== ENCOUNTER 2018-10-06 08:54 | Emergency (ER) | payer BC ==
--- NOTE | 2018-10-06 09:26 | ER Document Report ---
ED Medical Screen (RME) - General Chief Complaint: General Weakness Stated Complaint: WEAKNESS Time Seen by Provider: 10/06/18 09:19 Notes: HPI: 33-year-old man with a history of chronic Suboxone use here for 5 days of feeling weak and sweaty all over. Denies URI symptoms. History of renal stones however this feels different. He has multiple complaints. He complains of some bilateral lower back pain. He also has a rash in his bilateral abd pannus crease that is itchy he has been using Lotrimin on. He states his urine has been darker than normal. denies hx of hiv. states his tongue feels dry and he feels like he may have some mouth ulcers on the sides of his tongue. He states he feels thirsty all the time despite drinking water, he still has had little urine output. He works out in the heat every day. No prior history of thyroid issues or diabetes. no hx of this before. He has had a few loose nonbloody stools as well. denies any other uti sx. No recent antibiotics, steroids, or change in medication or diet. He has not taken anything for his symptoms. No numbness, tingling, weakness, saddle anesthesia, or incontinence. No spinal surgeries. Denies IV drug use. No fall or trauma. He denies any other complaints at this time. pcp is [facility] ROS neg to include 10 systems, unless mentioned in the hpi. PE:>>>> PHYSICAL_EXAM: GENERAL_APPEARANCE: well_nourished, alert, cooperative, no_acute_distress, no_obvious_discomfort. pleasant, morbidly obese young white male, smiling, speaking in full sentences, in no sign of pain or resp distress, and child at bedside VITALS: reviewed, see vital signs table. HEAD: no_swelling\tenderness on the head. normocephalic. atraumatic. no gilmore signs. no raccoons eyes. EYES: PERRL, EOMI, conjunctiva_clear. NOSE: no_nasal_discharge. MOUTH: (-)decreased moisture. THROAT: no_tonsilar_inflammation, no_airway_obstruction. no_lymphadenopathy NECK: supple, no_neck_tenderness, full rom. full strength. BACK: no midline back_tenderness. There is mild tenderness of bilateral paralumbar musculature. Spasm noted. Palpation reproduces patient's pain. CHEST_WALL: no_chest_tenderness. no overlying skin changes LUNGS: no_wheezing, ctab (-)accessory muscle use, good air exchange bilateral. HEART: normal_rate, normal_rhythm, , ABDOMEN: normal_BS, soft, no_abd_tenderness, obese abd, exam somewhat limited due to pts body habitus,. there is a tinea like rash in the pts pannus crease, (-)guarding, (-)rebound, no distension or peritoneal signs. no cva ttp GENITALIA: deferred RECTAL: deferred EXTREMITIES: strength 5/5 in all_extremities, good pulses in all_extremities, no_swelling\tenderness in the extremities, no_edema. full rom. normal gait. good pulses. brisk cap refill. good hand cheese packer. NEURO: motor and sensation intact, SKIN: warm, dry, good_color, no other rash than as noted. MENTAL_STATUS: speech_clear, oriented_X_3, normal_affect, responds_appropriately to questions. MDM: I have ordered labs and initial work-up and patient will be transferred to the main ER for further work-up. I have greeted and performed a rapid initial assessment of this patient. A comprehensive ED assessment and evaluation of the patient, analysis of test results and completion of medical decision making process will be conducted by an additional ED providers. Documentation achieved through voice recording which my lead to some occasional accidental typographical errors. Extensive efforts have been made to proof read documentation to make sure these are the least as possible Temp Pulse Resp BP Pulse Ox 10/06/18 09:12 98.2 F 106 H 19 154/88 H 94 Category Date Time Status EKG Documentation STAT Care 10/06/18 09:27 Ordered CBC WITH DIFF [HEME] Stat Lab 10/06/18 09:27 Ordered COMPREHENSIVE METABOLIC PANEL [CHEM] Stat Lab 10/06/18 09:27 Ordered CREATINE KINASE [CHEM] Stat Lab 10/06/18 09:27 Ordered MAGNESIUM [CHEM] Stat Lab 10/06/18 09:27 Ordered T4 [FREE T4 (FREE THYROXINE)] [CHEM] Stat Lab 10/06/18 09:28 Ordered THYROID STIMULATING HORMONE [CHEM] Stat Lab 10/06/18 09:28 Ordered URINALYSIS [URIN] Stat Lab 10/06/18 09:27 Uncollected Normal Saline 1000 ml [NaCl 0.9% 1000 ml IV Soln] 1,000 Med 10/06/18 09:28 Ordered ml IV BOLUS EKG ER ONLY [ER] Stat Oth 10/06/18 Ordered TRAVEL OUTSIDE OF THE [place] IN LAST 30 DAYS: No - Related Data Allergies/Adverse Reactions: No Known Allergies Allergy (Verified 05/28/17 08:46) Past Medical History - Past Medical History Cardiac Medical History: Reports: Hx Hypertension Pulmonary Medical History: Reports: Hx Asthma Renal/ Medical History: Reports: Hx Kidney Stones. Denies: Hx Peritoneal Dialysis Musculoskeltal Medical History: Reports Hx Arthritis, Reports Hx Musculoskeletal Deformity - Back problems, Reports Hx Musculoskeletal Trauma - Muscle strains and sprains, shot water into his hand Past Surgical History: Reports: Hx Orthopedic Surgery - hand surgery due to water shooting through his hand - Immunizations Immunizations up to date: Yes Hx Diphtheria, Pertussis, Tetanus Vaccination: Yes - 2014 Physical Exam - Vital signs Vitals: Temp Pulse Resp BP Pulse Ox 98.2 F 106 H 19 154/88 H 94 10/06/18 09:12 10/06/18 09:12 10/06/18 09:12 10/06/18 09:12 10/06/18 09:12 Course - Vital Signs Vital signs: Temp Pulse Resp BP Pulse Ox 98.2 F 106 H 19 154/88 H 94 10/06/18 09:12 10/06/18 09:12 10/06/18 09:12 10/06/18 09:12 10/06/18 09:12
[2018-10-06] MEDS ORDERED: NORMAL SALINE 1000 ML 1,000 ML IV ONE ×2 (09:28→13:09)
[2018-10-06 10:35] LABS: HEMOGLOBIN 16.2 g/dL (13.5-17.0); MEAN CORPUSCULAR HEMOGLOBIN 30.5 pg (27.0-33.4); MEAN CORPUSCULAR VOLUME 93 fl (80-97); PLATELET COUNT 116 10^3/uL (150-450); RED CELL DISTRIBUTION WIDTH 15.2 % (11.5-14.0); WHITE BLOOD COUNT 4.6 10^3/uL (4.0-10.5)
[2018-10-06 10:41] LABS: APPEARANCE,URINE SLIGHTLY-CLOUDY; BILIRUBIN,URINE SMALL (NEGATIVE); COLOR,URINE AMBER; GLUCOSE, URINE NEGATIVE (NEGATIVE); KETONES,URINE TRACE mg/dL (NEGATIVE); LEUKOCYTE ESTERASE,URINE NEGATIVE (NEGATIVE); NITRITE,URINE NEGATIVE (NEGATIVE); PROTEIN,URINE 30 mg/dL (NEGATIVE); URINE SPECIFIC GRAVITY 1.027
[2018-10-06 10:58] LABS: ALKALINE PHOSPHATASE 95 U/L (38-126); ANION GAP 6 (5-19); ASPARTATE AMINO TRANSFERASE 92 U/L (17-59); BILIRUBIN,TOTAL 1.8 mg/dL (0.2-1.3); BLOOD UREA NITROGEN 10 mg/dL (7-20); CALCIUM 8.5 mg/dL (8.4-10.2); CARBON DIOXIDE 32 mmol/L (22-30); CHLORIDE 100 mmol/L (98-107); GLUCOSE 111 mg/dL (75-110); POTASSIUM 4.1 mmol/L (3.6-5.0); TOTAL PROTEIN 7.7 g/dL (6.3-8.2)
[2018-10-06 11:09] LABS: ABSOLUTE LYMPHOCYTES# (MANUAL) 1.3 10^3/uL (0.5-4.7); ABSOLUTE MONOCYTES # (MANUAL) 0.2 10^3/uL (0.1-1.4); BAND NEUTROPHILS % (MANUAL) 1 % (3-5); BASOPHILS % (MANUAL) 0 % (0-2); EOSINOPHILS % (MANUAL) 0 % (0-6); LYMPHOCYTES % (MANUAL) 25 % (13-45); MONOCYTES % (MANUAL) 5 % (3-13); SEGMENTED NEUTROPHILS % (MAN) 66 % (42-78); TOTAL CELLS COUNTED 100
[2018-10-06 11:10] LABS: ANISOCYTOSIS SLIGHT; PLATELET COMMENT DECREASED
[2018-10-06 11:15] LABS: FREE T4 (FREE THYROXINE) 1.13 ng/dL (0.78-2.19)
[2018-10-06 11:29] LABS: THYROID STIMULATING HORMONE 1.28 uIU/mL (0.47-4.68)
[2018-10-06] MEDS ORDERED: FLUCONAZOLE 100 MG TABLET PO ONE (13:12)
--- NOTE | 2018-10-06 13:14 | ER Document Report ---
ED General - General Chief Complaint: General Weakness Stated Complaint: WEAKNESS Time Seen by Provider: 10/06/18 09:19 Primary Care Provider: MANDY MAY PA-C [Primary Care Provider] - Follow up tomorrow Mode of Arrival: Ambulatory Information source: Patient Notes: Patient presents complaining of generalized weakness, decreased energy, increased thirst and dark urine for the past 5 days. Patient reports lower back pain. Patient also complains of chronic rash to a skin fold under his abdomen. Patient denies any chest pain or shortness of breath. TRAVEL OUTSIDE OF THE [place] IN LAST 30 DAYS: No - HPI Onset: Other - 5 days Onset/Duration: Persistent Quality of pain: No pain Pain Level: Denies Associated symptoms: Sweating - When outside. denies: Chest pain, Nonproductive cough, Productive cough, Fever, Headache, Leg swelling, Nausea, Vomiting, Shortness of breath Exacerbated by: Denies Relieved by: Denies Similar symptoms previously: No Recently seen / treated by doctor: No - Related Data Allergies/Adverse Reactions: No Known Allergies Allergy (Verified 05/28/17 08:46) Past Medical History - General Information source: Patient - Social History Smoking Status: Current Every Day Smoker Chew tobacco use (# tins/day): No Frequency of alcohol use: None Drug Abuse: None Occupation: [employer] Lives with: Family Family History: Arthritis, CAD, CVA, DM, Hyperlipidemia, Hypertension, Malignancy. denies: COPD, Thyroid Disfunction Patient has suicidal ideation: No Patient has homicidal ideation: No - Past Medical History Cardiac Medical History: Reports: Hx Hypertension Pulmonary Medical History: Reports: Hx Asthma Renal/ Medical History: Reports: Hx Kidney Stones. Denies: Hx Peritoneal Dialysis Musculoskeletal Medical History: Reports Hx Arthritis, Reports Hx Musculoskeletal Deformity - Back problems, Reports Hx Musculoskeletal Trauma - Muscle strains and sprains, shot water into his hand Past Surgical History: Reports: Hx Orthopedic Surgery - hand surgery due to water shooting through his hand - Immunizations Immunizations up to date: Yes Hx Diphtheria, Pertussis, Tetanus Vaccination: Yes - 2014 Review of Systems - Review of Systems Constitutional: Malaise, Weakness. denies: Fever EENT: No symptoms reported Cardiovascular: No symptoms reported. denies: Chest pain, Dizziness, Lightheaded Respiratory: No symptoms reported. denies: Cough, Short of breath Gastrointestinal: No symptoms reported. denies: Abdominal pain, Vomiting Genitourinary: No symptoms reported Male Genitourinary: No symptoms reported Musculoskeletal: No symptoms reported. denies: Back pain Skin: Rash Hematologic/Lymphatic: No symptoms reported Neurological/Psychological: No symptoms reported. denies: Lost consciousness, Headaches Physical Exam - Vital signs Vitals: Temp Pulse Resp BP Pulse Ox 98.2 F 106 H 19 154/88 H 94 10/06/18 09:12 10/06/18 09:12 10/06/18 09:12 10/06/18 09:12 10/06/18 09:12 - General General appearance: Appears well, Alert In distress: None - HEENT Head: Normocephalic, Atraumatic Eyes: Normal Conjunctiva: Normal - Respiratory Respiratory status: No respiratory distress Chest status: Nontender Breath sounds: Normal. No: Rales, Rhonchi, Stridor, Wheezing Chest palpation: Normal - Cardiovascular Rhythm: Tachycardia Heart sounds: S1 appreciated, S2 appreciated Murmur: No - Abdominal Inspection: Morbidly Obese, Other - rash under panus Distension: No distension Bowel sounds: Normal Tenderness: Nontender - Back Back: Normal, Nontender. No: CVA tenderness - Extremities General upper extremity: Normal inspection, Nontender, Normal ROM General lower extremity: Normal inspection, Nontender, Normal ROM. No: Edema - Neurological Neuro grossly intact: Yes Cognition: Normal [place] Coma Scale Eye Opening: Spontaneous Maureen Coma Scale Verbal: Oriented [place] Coma Scale Motor: Obeys Commands [place] Coma Scale Total: 15 - Psychological Associated symptoms: Normal affect, Normal mood - Skin Skin Temperature: Warm Skin Moisture: Dry Skin Color: Normal Skin irregularity: Rash - Erythematous rash with well demarcated border to pannus of abdomen. Area has somewhat moist appearance Course - Re-evaluation Re-evalutation: 10/06/18 13:[address] Sosa regarding patient presentation and diagnostic evaluation eluding mild elevation of bilirubin and AST. Does not recommend any additional testing at this time as patient does not have any chest pain abdominal pain nausea vomiting or dyspnea. Recommends outpatient follow-up with his primary doctor for a recheck. We will plan to treat for dehydration, low back pain as well as intertrigo 10/06/18 14:35 Patient's IV infusion complete. Patient with mild elevation in bilirubin. Patient without any abdominal pain or flank pain symptoms. Patient denies any chest pain or shortness of breath. Patient only reports dark urine and decreased energy. Patient also with rash worrisome for fungal skin infection. Discussed importance of keeping area clean and dry. 10/06/18 14:41 - Vital Signs Vital signs: Temp Pulse Resp BP Pulse Ox 98.0 F 106 H 20 136/77 H 93 10/06/18 15:01 10/06/18 09:12 10/06/18 15:01 10/06/18 15:00 10/06/18 15:01 - Laboratory Result Diagrams: 10/06/18 09:57 10/06/18 09:57 Laboratory results interpreted by me: 10/06/18 10/06/18 10/06/18 09:57 09:57 09:57 RDW 15.2 H Plt Count 116 L Band Neutrophils % 1 L Carbon Dioxide 32 H Glucose 111 H Total Bilirubin 1.8 H Direct Bilirubin 1.0 H AST 92 H Urine Protein 30 H Urine Ketones TRACE H Urine Bilirubin SMALL H Urine Urobilinogen 4.0 H 10/06/18 14:34 Labs- Entire Visit 10/06/18 10/06/18 10/06/18 09:57 09:57 09:57 WBC 4.6 RBC 5.30 Hgb 16.2 Hct 49.0 MCV 93 MCH 30.5 MCHC 33.0 RDW 15.2 H Plt Count 116 L Total Counted 100 Seg Neutrophils % Not Reportable Seg Neuts % (Manual) 66 Band Neutrophils % 1 L Lymphocytes % Not Reportable Lymphocytes % (Manual) 25 Atypical Lymphs % 3 Monocytes % Not Reportable Monocytes % (Manual) 5 Eosinophils % Not Reportable Eosinophils % (Manual) 0 Basophils % Not Reportable Basophils % (Manual) 0 Absolute Neutrophils Not Reportable Abs Neuts (Manual) 3.1 Absolute Lymphocytes Not Reportable Abs Lymphs (Manual) 1.3 Absolute Monocytes Not Reportable Abs Monocytes (Manual) 0.2 Absolute Eosinophils Not Reportable Absolute Eos (Manual) 0.0 Absolute Basophils Not Reportable Abs Basophils (Manual) 0.0 Platelet Comment DECREASED Anisocytosis SLIGHT Sodium 137.8 Potassium 4.1 Chloride 100 Carbon Dioxide 32 H Anion Gap 6 BUN 10 Creatinine 0.58 Est GFR ( Amer) > 60 Est GFR (Non-Af Amer) > 60 Glucose 111 H Calcium 8.5 Magnesium 2.0 Total Bilirubin 1.8 H Direct Bilirubin 1.0 H Neonat Total Bilirubin Not Reportable Neonat Direct Bilirubin Not Reportable Neonat Indirect Bili Not Reportable AST 92 H ALT 83 Alkaline Phosphatase 95 Creatine Kinase 83 Total Protein 7.7 Albumin 4.0 TSH Free T4 Urine Color Urine Appearance Urine pH Ur Specific [place] Urine Protein Urine Glucose (UA) Urine Ketones Urine Blood Urine Nitrite Urine Bilirubin Urine Urobilinogen Ur Leukocyte Esterase Urine WBC (Auto) Urine RBC (Auto) Squamous Epi Cells Auto Urine Mucus (Auto) Urine Ascorbic Acid 10/06/18 10/06/18 09:57 09:57 WBC RBC Hgb Hct MCV MCH MCHC RDW Plt Count Total Counted Seg Neutrophils % Seg Neuts % (Manual) Band Neutrophils % Lymphocytes % Lymphocytes % (Manual) Atypical Lymphs % Monocytes % Monocytes % (Manual) Eosinophils % Eosinophils % (Manual) Basophils % Basophils % (Manual) Absolute Neutrophils Abs Neuts (Manual) Absolute Lymphocytes Abs Lymphs (Manual) Absolute Monocytes Abs Monocytes (Manual) Absolute Eosinophils Absolute Eos (Manual) Absolute Basophils Abs Basophils (Manual) Platelet Comment Anisocytosis Sodium Potassium Chloride Carbon Dioxide Anion Gap BUN Creatinine Est GFR ( Amer) Est GFR (Non-Af Amer) Glucose Calcium Magnesium Total Bilirubin Direct Bilirubin Neonat Total Bilirubin Neonat Direct Bilirubin Neonat Indirect Bili AST ALT Alkaline Phosphatase Creatine Kinase Total Protein Albumin TSH 1.28 Free T4 1.13 Urine Color JESSICA Urine Appearance SLIGHTLY-CLOUDY Urine pH 5.0 Ur Specific [place] 1.027 Urine Protein 30 H Urine Glucose (UA) NEGATIVE Urine Ketones TRACE H Urine Blood NEGATIVE Urine Nitrite NEGATIVE Urine Bilirubin SMALL H Urine Urobilinogen 4.0 H Ur Leukocyte Esterase NEGATIVE Urine WBC (Auto) 1 Urine RBC (Auto) 2 Squamous Epi Cells Auto 1 Urine Mucus (Auto) FEW Urine Ascorbic Acid NEGATIVE - EKG Interpretation by Vt EKG shows normal: Sinus rhythm Rate: Tachycardia - 102 Additional EKG results interpreted by me: 10/06/18 14:42 QTC 423, no ST elevation or T wave inversion Discharge - Discharge Clinical Impression: Increased bilirubin level, Decreased energy, Dehydration Condition: Stable Disposition: HOME, SELF-CARE Instructions: Dehydration ([facility]), Fatigue ([facility]), Weakness ([facility]) Additional Instructions: Return immediately for any new or worsening symptoms Followup with your primary care provider, call tomorrow to make a followup appointment Your bilirubin test and one of your liver function test was mildly elevated. You should follow-up with your primary doctor for further evaluation of these abnormal findings. Return immediately for any yellowing of the skin or eyes, darkening of the urine, fever abdominal pain or any new or worsening symptoms. Increase oral fluids and try to stay well-hydrated when working outside. Prescriptions: Fluconazole [Diflucan] 150 mg PO ONCE PRN #3 tablet PRN Reason: Forms: Return to Work Referrals: MANDY MAY PA-C [Primary Care Provider] - Follow up tomorrow
[2018-10-06 15:09] VITALS: BP 136/77
--- NOTE | 2018-10-07 09:47 | EKG REPORT ---
SEVERITY:- OTHERWISE NORMAL ECG - SINUS TACHYCARDIA : Confirmed by: Efraín Sánchez 07-Oct-2018 09:46:26
== END 2018-10-06 15:08 | disposition home or self-care (01) ==
LOC: ER 08:54
DX: E86.0 Dehydration (principal); E80.6 Other disorders of bilirubin metabolism; R68.89 Other general symptoms and signs; R53.1 Weakness; F17.200 Nicotine dependence, unspecified, uncomplicated; I10 Essential (primary) hypertension; Z87.442 Personal history of urinary calculi
CPT/HCPCS: 93005; 36415; 84439; 82550; 83735; 84443; 85025; 80053; 81001; 93010; J7030; 96360; 96361; 99283